=== PATIENT | female | born 1990 | race Caucasian/White ===

== ENCOUNTER 2019-04-07 15:19 | Emergency (ER) | payer BC, OTHER ==
[2019-04-07 15:26] VITALS: BP 110/77; PULSE 92; TEMP 97.8; BMI 23.0
--- NOTE | 2019-04-07 15:28 | PDOC ---
Rapid Medical Evaluation Chief Complaint: Cold Symptoms Time Seen by Provider: 04/07/19 15:23 Medical Evaluation: Allergies Allergy/AdvReac Type Severity Reaction Status Date / Time No Known Allergies Allergy Verified 04/07/19 15:24 04/07/19 15:24 I have performed a brief in-person evaluation of this patient. The patient presents with a chief complaint of: sinus congestion and frontal headache pain ./ young brother ill with Strep , finishing antibiotic Pertinent physical exam findings: pale/ stuffy/ mild erythema I have ordered the following: Rapid strep The patient will proceed to the ED for further evaluation. Discharge Disposition - Diagnosis URI (upper respiratory infection) - Referrals - Patient Instructions - Post Discharge Activity
[2019-04-07] MEDS ORDERED: IBUPROFEN 600 MG TABLET (FP) PO ONE ×2 (15:48→15:50)
--- NOTE | 2019-04-07 15:58 | PDOC ---
History of Present Illness - General Chief Complaint: Cold Symptoms Stated Complaint: CONGESTION \ BODY ACHE Time Seen by Provider: 04/07/19 15:23 History Source: Patient Exam Limitations: No Limitations Past History - Past Medical History Allergies/Adverse Reactions: Allergies Allergy/AdvReac Type Severity Reaction Status Date / Time No Known Allergies Allergy Verified 04/07/19 15:37 Home Medications: Ambulatory Orders Fluticasone Prop 0.05% Nasal [Flonase -] 1 - 2 spray NS DAILY #1 spray.pump Asthma: Yes (no meds/does not remember last attack) Cancer: No Cardiac Disorders: No Diabetes: No GI Disorders: Yes (ACID REFLUX) HTN: No Kidney Stones: Yes Psychiatric Problems: Yes (ANXIETY) Seizures: No Thyroid Disease: No - Suicide/Smoking/Psychosocial Hx Smoking Status: Yes Smoking History: Never smoked Have you smoked in the past 12 months: Yes Number of Cigarettes Smoked Daily: 5 If you are a former smoker, when did you quit?: august Information on smoking cessation initiated: No 'Breaking Loose' booklet given: 07/15/16 Hx Alcohol Use: No Drug/Substance Use Hx: No Substance Use Type: None Hx Substance Use Treatment: No *Physical Exam - Vital Signs Last Vital Signs Temp Pulse Resp BP Pulse Ox 97.8 F 92 H 17 110/77 100 04/07/19 15:24 04/07/19 15:24 04/07/19 15:24 04/07/19 15:24 04/07/19 15:24 - Physical Exam General Appearance: No: Apparent Distress HEENT: positive: Nasal Congestion. negative: Muffled/Hoarse voice, Pharyngeal Erythema, Tonsillar Exudate, Tonsillar Erythema, Rhinorrhea, Sinus Tenderness Neck: negative: Lymphadenopathy (R), Lymphadenopathy (L) Respiratory/Chest: positive: Lungs Clear, Normal Breath Sounds. negative: Respiratory Distress Gastrointestinal/Abdominal: positive: Soft. negative: Tender Neurologic: positive: Alert, Normal Mood/Affect ED Treatment Course - Medications Given in the ED: ED Medications Discontinued Medications Generic Name Dose Route Start Last Admin Trade Name Freq PRN Reason Stop Dose Admin Ibuprofen 600 mg 04/07/19 15:48 04/07/19 15:51 Motrin - PO 04/07/19 15:49 600 mg ONCE ONE Administration Medical Decision Making - Medical Decision Making 28 y/o F with no sig pmh presents with facial pain, congestion, rhinorrhea and throat pain from last night. States her younger brother was recently diagnosed with strep infection and wants to make sure she doesn't have it as well. Denies fever, sob, cp, abd pain, n/v/d Likely sinusitis Rapid strep sent from triage and pending 04/07/19 15:54 Rapid strep negative 04/07/19 16:10 *DC/Admit/Observation/Transfer Diagnosis at time of Disposition: Sinusitis Qualifiers: Sinusitis location: other Chronicity: acute Recurrence: non-recurrent Qualified Code(s): J01.80 - Other acute sinusitis - Discharge Dispostion Disposition: HOME Condition at time of disposition: Stable Decision to Admit order: No - Prescriptions Prescriptions: Fluticasone Prop 0.05% Nasal [Flonase -] 1 - 2 spray NS DAILY #1 spray.pump - Referrals - Patient Instructions Printed Discharge Instructions: DI for Sinusitis Additional Instructions: Thank you for choosing [facility]. It was a pleasure taking care of you. Recommend Nedi-Pot to help with congestion Use Flonase spray for 1 week (do not use for prolonged time as can cause rebound congestion) Use humidifier at night if needed Follow-up with your doctor in 1 week Return to the Emergency Department if your symptoms worsen or persist or have other concerning symptoms. - Post Discharge Activity Forms/Work/School Notes: Back to Work
== END 2019-04-07 16:24 | disposition home or self-care (01) ==
LOC: JERFT 15:19
DX: J01.80 Other acute sinusitis (principal); K21.9 Gastro-esophageal reflux disease without esophagitis; F42.9 Obsessive-compulsive disorder, unspecified; Z87.442 Personal history of urinary calculi
CPT/HCPCS: 87070; 87880; 99281-25

== ENCOUNTER 2021-05-14 00:23 | Inpatient (IN) | payer OTHER ==
[2021-05-14] MEDS ORDERED: PROMETHAZINE HCL 25 MG/1 ML VIAL IVPUSH ONE (01:11)
[2021-05-14] MEDS ORDERED: BUTORPHANOL TARTRATE 1 MG/ML VIAL IVPB ONE (01:11)
[2021-05-14] MEDS ORDERED: OXYTOCIN 30 UNITS in 0.9% NS 30 UNIT/500 ML INFUS.BAG IVPB SCH (01:15)
[2021-05-14] MEDS ORDERED: AMPICILLIN - 2 GM in SODIUM CHLORIDE 100 ML IVPB ONE (01:41)
[2021-05-14 02:05] LABS: BASO % 0.4 % (0-2.0); EOS % 0.8 % (0-4.5); HEMATOCRIT 31.3 % (32.4-45.2); HEMOGLOBIN 10.4 GM/dL (10.7-15.3); LYMPH % 25.9 % (8-40); MCH 26.7 pg (25.7-33.7); MCHC 33.2 g/dl (32.0-36.0); MEAN CELL VOLUME 80.3 fl (80-96); MEAN PLT VOLUME 10.7 fl (7.5-11.1); MONO % 6.8 % (3.8-10.2); NEUT % 66.1 % (42.8-82.8); PLATELET COUNT 250 10^3/uL (134-434); RDW 15.2 % (11.6-15.6); WHITE BLOOD COUNT 9.9 K/mm3 (4.0-10.0)
[2021-05-14] MEDS ORDERED: OXYTOCIN 30 UNITS in 0.9% NS 30 UNIT/500 ML INFUS.BAG IVPB ONE (02:12)
[2021-05-14 02:14] LABS: INR 0.91 (0.83-1.09); PROTHROMBIN TIME (PATIENT) 11.1 SEC (9.7-13.0)
[2021-05-14 02:17] LABS: ACTIVATED PTT 25.7 SECONDS (25.2-36.5)
[2021-05-14] MEDS: ELECTROLYTE-148 SOLN 1,000 ML IV SCH ×2 (02:25→06:40)
[2021-05-14 02:27] LABS: CALCIUM 8.6 mg/dL (8.5-10.1)
[2021-05-14 02:28] LABS: BLOOD UREA NITROGEN 6.6 mg/dL (7-18)
[2021-05-14 02:32] LABS: CREATININE 0.5 mg/dL (0.55-1.3)
[2021-05-14] MEDS ORDERED: AMPICILLIN SODIUM 2 GM VIAL ONE (07:27)
[2021-05-14] MEDS ORDERED: AMPICILLIN SODIUM 1 GM VIAL ONE ×3 (11:22→19:50)
[2021-05-14] MEDS: AMPICILLIN - 1 GM in SODIUM CHLORIDE 100 ML IVPB SCH ×3 (11:30→19:45)
[2021-05-14] MEDS ORDERED: FENTANYL/BUPIVACAINE/NS/PF - PCEA - 50 ML DISP.SYRIN EP ONE ×2 (16:23→21:02)
[2021-05-14] MEDS ORDERED: PCA PUMP NR ONE (16:23)
[2021-05-14] MEDS ORDERED: BUPIVACAINE HCL/PF 0.25% (2.5MG/ML) 10 ML VIAL ONE ×3 (16:25→22:25)
[2021-05-14] MEDS ORDERED: NALOXONE HCL 0.4 MG/ML VIAL IVPUSH PRN (17:48)
[2021-05-14] MEDS ORDERED: FENTANYL/BUPIVACAINE/NS/PF - PCEA - 50 ML DISP.SYRIN EP SCH (18:00)
[2021-05-14] MEDS ORDERED: ACETAMINOPHEN 325 MG TABLET (FP) ONE (18:11)
[2021-05-14] MEDS ORDERED: OXYTOCIN 20 UNITS in 0.9% NS 20 UNIT/1,000 ML INFUS.BAG IV ONE (23:28)
[2021-05-15] MEDS ORDERED: OXYTOCIN 20 UNITS in 0.9% NS 20 UNIT/1,000 ML INFUS.BAG IV ONE (00:05)
[2021-05-15] MEDS ORDERED: BENZOCAINE 28 GM HEMORRHOIDAL OINTMENT PR PRN (02:03)
[2021-05-15] MEDS ORDERED: METHYLERGONOVINE MALEATE 0.2 MG/1 ML AMP IM PRN (02:03)
[2021-05-15] MEDS ORDERED: WITCH HAZEL 50% (TUCKS) 40 PAD/JAR PAD TP PRN (02:03)
[2021-05-15] MEDS ORDERED: BISACODYL 10 MG SUPP.RECT PR PRN (02:03)
[2021-05-15] MEDS ORDERED: BENZOCAINE 20% 57 GM BOTTLE TP PRN (02:03)
[2021-05-15] MEDS: AMPICILLIN - 1 GM in SODIUM CHLORIDE 100 ML IVPB SCH ×2 (02:19→08:41)
[2021-05-15] MEDS: ACETAMINOPHEN 325 MG TABLET (FP) PO PRN ×2 (06:36→19:00)
[2021-05-15] MEDS: IBUPROFEN 600 MG TABLET (FP) PO PRN (19:00)
[2021-05-16] MEDS: ACETAMINOPHEN 325 MG TABLET (FP) PO PRN (07:18)
[2021-05-16] MEDS: IBUPROFEN 600 MG TABLET (FP) PO PRN (07:18)
[2021-05-16 08:16] LABS: BASO % 0.3 % (0-2.0); EOS % 1.4 % (0-4.5); HEMATOCRIT 29.8 % (32.4-45.2); HEMOGLOBIN 9.5 GM/dL (10.7-15.3); LYMPH % 22.7 % (8-40); MCH 26.2 pg (25.7-33.7); MCHC 31.9 g/dl (32.0-36.0); MEAN PLT VOLUME 10.3 fl (7.5-11.1); MONO % 5.6 % (3.8-10.2); PLATELET COUNT 226 10^3/uL (134-434); RBC 3.64 M/mm3 (3.60-5.2); RDW 15.3 % (11.6-15.6); WHITE BLOOD COUNT 11.1 K/mm3 (4.0-10.0)
[2021-05-16 13:02] VITALS: BP 105/51; PULSE 78; TEMP 97.8
== END 2021-05-16 11:40 | disposition home or self-care (01) | DRG 560 ==
LOC: JDEL 00:23 → JLDR 00:42 → J3W 05-15 02:01
PROVIDERS: ADMIT Obstetrics & Gynecology; ATTEND Obstetrics & Gynecology
PROC: 10E0XZZ Delivery of Products of Conception, External Approach (ICD-10-PCS; principal; 2021-05-14)
PROC: 10907ZC Drainage of Amniotic Fluid, Therapeutic from Products of Conception, Via Natural or Artificial Opening (ICD-10-PCS; 2021-05-14)
DX: O80 Encounter for full-term uncomplicated delivery (principal); Z3A.39 39 weeks gestation of pregnancy; Z37.0 Single live birth; Z87.09 Personal history of other diseases of the respiratory system; Z86.59 Personal history of other mental and behavioral disorders
CPT/HCPCS: 36415; 59409; 80048; 85025; 85610; 85730; 86780; 86850; 86900; 86901

== ENCOUNTER 2024-06-25 15:12 | Emergency (ER) | payer OTHER ==
[2024-06-25 15:28] VITALS: BP 103/71; PULSE 108; RESP 18; TEMP 98.5; BMI 20.9
[2024-06-25] MEDS ORDERED: ONDANSETRON 4 MG/2 ML VIAL ONE (15:54)
[2024-06-25] MEDS ORDERED: ACETAMINOPHEN INJECTION 100 ML IVPB ONE (15:54)
[2024-06-25] MEDS ORDERED: FAMOTIDINE 20 MG/50 ML IVPB 20 MG/50 ML MG IVPB ONE (15:55)
[2024-06-25] MEDS: LACTATED RINGERS SOLUTION 1000 ML INFUS.BAG IV ONE ×2 (16:03→16:11)
[2024-06-25] MEDS: ONDANSETRON 4 MG/2 ML VIAL IVPUSH ONE (16:03)
[2024-06-25] MEDS: ACETAMINOPHEN 1000 MG/100 ML BAG IVPB ONE (16:03)
[2024-06-25] MEDS: FAMOTIDINE 20 MG/50 ML IVPB 20 MG/50 ML MG IVPB ONE (16:04)
[2024-06-25 16:09] LABS: BASO % 0.6 % (0-2.0); EOS % 1.2 % (0-4.5); HEMATOCRIT 40.8 % (32.4-45.2); HEMOGLOBIN 14.4 GM/dL (10.7-15.3); LYMPH % 20.6 % (8-40); MCH 30.5 pg (25.7-33.7); MCHC 35.3 g/dl (32.0-36.0); MEAN CELL VOLUME 86.2 fl (80-96); MEAN PLT VOLUME 8.4 fl (7.5-11.1); NEUT % 69.6 % (42.8-82.8); PLATELET COUNT 245 10^3/uL (134-434); RBC 4.73 M/mm3 (3.60-5.2); RDW 13.4 % (11.6-15.6); WHITE BLOOD COUNT 3.6 K/mm3 (4.0-10.0)
[2024-06-25 16:13] LABS: EPI CELLS 23 /uL (0-25.1); HYALINE CASTS 0 /uL (0-3.1); URINE APPEARANCE CLEAR; URINE BACTERIA 71 /uL (0-1359); URINE BILIRUBIN NEGATIVE (NEGATIVE); URINE COLOR YELLOW; URINE GLUCOSE (UA) NEGATIVE (NEGATIVE); URINE KETONE NEGATIVE (NEGATIVE); URINE LEUK ESTERASE NEGATIVE (NEGATIVE); URINE NITRITE NEGATIVE (NEGATIVE); URINE PROTEIN TRACE (NEGATIVE); URINE RBC 105 /uL (0-23.9); URINE WBC 5 /uL (0-25.8)
[2024-06-25 16:37] LABS: POTASSIUM 3.4 mmol/L (3.5-5.1)
[2024-06-25 16:39] LABS: BLOOD UREA NITROGEN 8.2 mg/dL (7-18); CALCIUM 8.7 mg/dL (8.5-10.1); MAGNESIUM 1.9 mg/dL (1.8-2.4)
[2024-06-25 16:42] LABS: CREATININE 0.8 mg/dL (0.55-1.3)
[2024-06-25 16:44] LABS: BILIRUBIN,TOTAL 1.3 mg/dL (0.2-1); TOT PROT 6.8 g/dl (6.4-8.2)
[2024-06-25] MEDS ORDERED: POTASSIUM CHLORIDE TABS 20 MEQ TABLET.ER (FP) PO ONE (17:03)
[2024-06-25] MEDS: POTASSIUM CHLORIDE TABS 20 MEQ TABLET.ER (FP) PO ONE (17:04)
[2024-06-25 17:09] LABS: BILIRUBIN,DIRECT 0.3 mg/dL (0.0-0.2)
[2024-06-25] MEDS ORDERED: MAGNESIUM 1GM/D5W - 1 GM/100 ML IVPB IVPB ONE (19:48)
[2024-06-25] MEDS: MAGNESIUM SULF 50% (8.12 MEQ/2 ML-1 GM VIAL) IVPB ONE (20:01)
== END 2024-06-25 20:47 | disposition home or self-care (01) ==
LOC: JER 15:12
PROC: 3E033GC Introduction of Other Therapeutic Substance into Peripheral Vein, Percutaneous Approach (ICD-10-PCS; principal; 2024-06-25)
PROC: 3E033NZ Introduction of Analgesics, Hypnotics, Sedatives into Peripheral Vein, Percutaneous Approach (ICD-10-PCS; 2024-06-25)
DX: R19.7 Diarrhea, unspecified (principal); R11.2 Nausea with vomiting, unspecified; R10.84 Generalized abdominal pain; R53.1 Weakness; R50.9 Fever, unspecified
CPT/HCPCS: 36415; 74177-TC; 76705-TC; 80053; 81003; 82248; 83690; 83735; 84703; 85025; 87086; 99285-25; J0131; Q9967